=== PATIENT | female | born 1940 | race Caucasian/White ===

== ENCOUNTER 2018-08-14 17:50 | Emergency (ER) | payer MEDICARE ==
[~2018-08-14] VITALS: Ht 149.9 cm; Wt 61.2 kg
[2018-08-14] MEDS ORDERED: CARB100ER PO (18:15)
[2018-08-14] MEDS ORDERED: LEVSOD75 PO (18:15)
[2018-08-14] MEDS ORDERED: ALEN70 PO (18:16)
[2018-08-14] MEDS ORDERED: Cyclobenzaprine5 MG PO (18:16)
== END 2018-08-14 23:12 | disposition home or self-care (01) ==
LOC: ER 17:50
DX: S09.90XA Unspecified injury of head, initial encounter (principal); S22.089A Unspecified fracture of T11-T12 vertebra, initial encounter for closed fracture; W01.198A Fall on same level from slipping, tripping and stumbling with subsequent striking against other object, initial encounter; Z91.048 Other nonmedicinal substance allergy status; Z79.899 Other long term (current) drug therapy; F03.90 Unspecified dementia, unspecified severity, without behavioral disturbance, psychotic disturbance, mood disturbance, and anxiety
CPT/HCPCS: 70450; 72072; 72125; 96374; 99284-25; J2405